=== PATIENT | male | born 1970 | race Caucasian/White ===

== ENCOUNTER → 2019-12-24 13:01 | Outpatient (CLI) | payer OTHER, SELFPAY | PROVIDERS: PCP Family Medicine; Visit Provider Family Medicine | DX: G47.33 Obstructive sleep apnea (adult) (pediatric) (principal); G47.10 Hypersomnia, unspecified; I10 Essential (primary) hypertension; R06.83 Snoring; E66.9 Obesity, unspecified | CPT/HCPCS: 95806 ==